=== PATIENT | female | born 1930 | race Caucasian/White ===

== ENCOUNTER 2016-05-25 08:57 | Observation (INO) | payer MEDICARE, OTHER ==
[~2016-05-25] VITALS: Ht 162.6 cm; Wt 80.5 kg
[~2016-05-25 08:57] MED LIST: ALEVE220 MG; ASCORBIC ACID500 MG PO; BONIVA150 MG; DETROL LA4 MG; MULTI-DAY VITAM1 TAB; NEXIUM40 MG PO; NIACIN250 M1; TENORMIN50 MG PO; VITAMIN B-121000 MC3 PO; VITAMIN E400 UNI2
[2016-05-25 09:54] LABS: BASOPHILS 0.3 % (0.0-2.0); EOSINOPHILS 1.7 % (0-7); HEMATOCRIT 37.8 % (36.0-48.0); HEMOGLOBIN 12.3 g/dL (12-16); IMMATURE GRANULOCYTES 0.2 % (0-5); LYMPHOCYTES 21.1 % (15-50); MCHC 32.5 g/dL (31.0-37.0); MCV 85.9 fL (80.0-100.0); MEAN PLATELET VOLUME 8.9 fL (7.4-10.4); MONOCYTES 13.4 % (2-11); NEUTROPHILS 63.3 % (40-80); PLATELET COUNT 200 10x3/uL (130-400); RDW 15.2 % (11.5-14.5); WBC 6.6 10x3/uL (4.8-10.8)
[2016-05-25 10:12] LABS: ALBUMIN 3.3 g/dL (3.4-5.0); ALKALINE PHOSPHATASE 54 U/L (46-116); ALT (SGPT) 19 U/L (10-68); CALC OSMOLALITY 277 mosm/kg (275-300); CALCIUM 9.1 mg/dL (8.5-10.1); CARBON DIOXIDE 26.1 mmol/L (21.0-32.0); CHLORIDE - SERUM 102 mmol/L (98-107); CREATININE - SERUM 0.9 mg/dL (0.6-1.3); GLUCOSE 111 mg/dL (74-106); POTASSIUM - SERUM 4.5 mmol/L (3.5-5.1); PROTEIN - SERUM 6.8 g/dL (6.4-8.2); SODIUM 137 mmol/L (136-145); UREA NITROGEN 21 mg/dL (7-18); eGFR NON AFRICAN AMERICAN 63 mL/min (90-120)
[2016-05-25 10:16] LABS: CREATINE KINASE 57 UL (21-215); MAGNESIUM - SERUM 1.9 mg/dL (1.8-2.4); TROPONIN-I < 0.017 ng/mL (0.000-0.060)
--- NOTE | 2016-05-25 12:45 | NUR ---
PATIENT ADMITTED TO ROOM 2124 FROM ED. PATIENT BROUGHT TO UNIT VIA WHEELCHAIR ACCOMPAINED BY HOSPITAL STAFF AND FRIENDS FROM [facility]. PATIENT ALERT/ORIENTED. RESP EVEN AND UNLABORED. NO DISTRESS. ASSISTED PATIENT TO BED. AT BEDSIDE FOR EVALUATION AT THIS TIME.
[2016-05-25] MEDS ORDERED: ZETIA10 MG PO (13:23)
[2016-05-25 13:43] VITALS: BP 168/98; BMI 30.2
--- NOTE | 2016-05-25 13:55 | NUR ---
SCDS PROVIDED TO PATIENT. PATIENT SITTING UP ON BEDSIDE CONSUMING MEAL AT THIS TIME WITH FEMALE FRIEND AT BEDSIDE. PATIENT DENIES ANY NEEDS AT THIS TIME. NON SKID SOCKS PATENT. CALL LIGHT WITHIN REACH. NO DISTRESS.
[2016-05-25 14:00] LABS: APPEARANCE HAZY (CLEAR); BILIRUBIN NEGATIVE (NEGATIVE); COLOR YELLOW (YELLOW); GLUCOSE NEGATIVE (NEGATIVE); KETONE NEGATIVE (NEGATIVE); LEUKOCYTE ESTERASE 2+ (NEGATIVE); NITRITE POSITIVE (NEGATIVE); PROTEIN NEGATIVE (NEGATIVE); UROBILINOGEN NORMAL (NORMAL)
[2016-05-25 14:01] LABS: BACTERIA MANY /hpf (NONE SEEN); EPITHELIAL CELLS 0-5 /hpf (0-5); RED CELLS - URINE NONE SEEN /hpf (0-5); WHITE CELLS - URINE 0-5 /hpf (0-5)
--- NOTE | 2016-05-25 14:17 | NUR ---
CALLED AND SPOKE TO AME IN LAB AND REQUESTED CULTURE BE PERFORMED ON UA THAT JUST RESULTED WITH MANY BACTERIA AND POSITIVE FOR NITRATES. ORDER PLACED IN COMPUTER AND AME STATED SHE WOULD TAKE CARE OF IT.
--- NOTE | 2016-05-25 14:18 | NUR ---
ENVELOPE PROVIDED TO PATIENT TO PLACE JEWLERY IN WHILE HAVING MRI.
--- NOTE | 2016-05-25 14:23 | NUR ---
PATIENT LEFT UNIT VIA WHEELCHAIR AT THIS TIME FOR MRI. NO DISTRESS UPON LEAVING UNIT.
--- NOTE | 2016-05-25 15:45 | NUR ---
PATIENT RETURNED TO UNIT VIA WHEELCHAIR. NO DISTRESS. CALL LIGHT WITHIN REACH. TELEMETRY AND SCD REAPPLIED.
[2016-05-25 17:01] VITALS: BP 164/81
--- NOTE | 2016-05-25 18:01 | NUR ---
RESTING IN BED AT THIS TIME. CALL LIGHT WITHIN REACH. NO DISTRESS. DENIES NEEDS.
--- NOTE | 2016-05-25 19:41 | NUR ---
RESUMED CARE OF PT, LYING IN BED RESPIRATIONS EVEN AND UNLABORED ON ROOM AIR. 72 SR ON TELEMETRY. LEFT AC SALINE LOCKED. CALL LIGHT IN REACH. SEE NURSE ASSESSMENT. WILL CONTINUE TO MONITOR.
[2016-05-25 21:30] VITALS: BP 166/83
--- NOTE | 2016-05-25 23:48 | NUR ---
LOCKSTITCH WAISTLINE JOINER AT BEDSIDE TO OBTAIN VITALS, CALL LIGHT IN REACH. WILL CONTINUE TO MONITOR.
[2016-05-26 00:45] VITALS: BP 196/104
[2016-05-26 04:30] VITALS: BP 185/88
[2016-05-26 05:53] LABS: CHOL - HDL RATIO 3.4 ratio (2.3-4.1); LDL-HDL RATIO 2.1 ratio (1.5-3.5); MAGNESIUM - SERUM 1.7 mg/dL (1.8-2.4); PHOSPHOROUS 4.1 mg/dL (2.5-4.9)
--- NOTE | 2016-05-26 06:36 | NUR ---
NO CHANGES FROM PREVIOUS ASSESSMENT, CALL LIGHT INR EACH. WILL CONTINUE TO MONITOR.
--- NOTE | 2016-05-26 07:15 | NUR ---
RESTING QUIETLY RESP UNLABORED NAD NOTED
--- NOTE | 2016-05-26 07:15 | NUR ---
RESTING QUIETLY EYES CLOSED RESP UNLABORED NAD NOTED
--- NOTE | 2016-05-26 07:30 | NUR ---
ASSESSMENT COMPLETED. TELEMERTY SHOWS SR. PT IS ON RA. LEFT AC SL. DENIES ANY NEEDS. REFUSED TO WEAR SCDS. SR UP WITH CALL LIGHT IN REACH. WILL MONITOR
[2016-05-26 08:00] VITALS: BP 132/73
[2016-05-26] MEDS ORDERED: ALEVE220 MG PO (10:31)
[2016-05-26] MEDS ORDERED: DETROL LA4 MG PO (10:31)
[2016-05-26] MEDS ORDERED: NIACIN250 M1 PO (10:32)
[2016-05-26] MEDS ORDERED: MULTI-DAY VITAM1 TAB PO (10:59)
[2016-05-26] MEDS ORDERED: VITAMIN E400 UNI2 PO (11:00)
[2016-05-26 12:00] VITALS: BP 163/76
[2016-05-26 13:16] VITALS: Ht 162.6 cm; Wt 80.5 kg
[2016-05-26 16:00] VITALS: BP 163/84
--- NOTE | 2016-05-26 19:30 | NUR ---
UP WALKING AROUND IN ROOM DENIES NEEDS AT THIS TIME. UP AD SULAIMAN W/O DIFF.ON ROOM AIR, TELEMETRY IN PLACE SHOWING HR 86 SR. LEFT ARM SL INTACT WITH NO R/S NOTED AT AC SITE. CONTINUE TO MONITOR. C/L IN REACH. DAUGHTER VISITING AT BEDSIDE.
[2016-05-26 20:03] VITALS: BP 149/92
[2016-05-27 01:37] VITALS: BP 160/86
[2016-05-27 04:19] VITALS: BP 173/90
--- NOTE | 2016-05-27 06:08 | HP ---
PATIENT: YOSELIN BETANCUR MEDICAL RECORD: [id number] ACCOUNT: [id number] LOCATION:[address] : 30 ADMISSION DATE: 05/25/16 HISTORY AND PHYSICAL EXAMINATION CHIEF COMPLAINT: Loss of consciousness. HISTORY OF PRESENT ILLNESS: The patient is an 85-year-old female with history of essential hypertension who was sitting in the orthodox this morning in a pew, she told a friend sitting next to her that she did not feel well and then proceeded to put head back and began to snore. Her eyes were closed. There was no seizure activity noted. Her friends were both nurses and they laid her down on the ground, and she immediately began to arouse and be awake and alert and asked them not to call EMS. She was diaphoretic. She denied chest pain, headache or any other symptoms. She said that she did not eat breakfast this morning and thought that might have played a role. She has no history of diabetes or hypoglycemia. She was brought by EMS, was hypertensive on presentation in the Emergency Room with a blood pressure 146/105 with a stable heart rate of 67. She now feels well and would like to go home. She denies feeling ill recently. No previous history of syncope or cardiac issues. PAST MEDICAL HISTORY: Essential hypertension, degenerative joint disease, GERD, hyperlipidemia, postmenopausal. PAST SURGICAL HISTORY: Laparoscopic cholecystectomy, elective left total knee replacement for arthritis, appendectomy, cataract surgery OU, bilateral hysterectomy at age 29, had a melanoma removed from her right cheek 8 years ago. SOCIAL HISTORY: She is a non-smoker, drinks rare glass of wine. 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 FAMILY HISTORY: Father of AL at 42, he was a smoker. Mother of osteosarcoma. HOME MEDICATIONS: Nexium 40 mg daily, Detrol-LA 1 daily, atenolol 50 mg daily, Zetia 10 mg daily, vitamin E 400 international units daily, niacin 500 mg p.o. daily, B12 of 1000 mcg p.o. daily, calcium carbonate with vitamin D 600 mg p.o. daily. ALLERGIES: None mentioned REVIEW OF SYSTEMS: GENERAL: She has felt well up until this episode. Denies any recent fever, weight loss or weight gain. HEENT: No recent visual change, sinus congestion, sore throat or hearing difficulty. RESPIRATORY: No SOB, cough or sputum production. CARDIAC: No exertional chest pain, claudication, edema or palpitations. GASTROINTESTINAL: No nausea, vomiting, change in stools or blood per rectum. GENITOURINARY: She has mild incontinence, improved with medication. No dysuria. GYNECOLOGIC: 4, 4-0-0-4; post-hysterectomy at age 29. No vaginal bleeding currently. ENDOCRINE: Denies polyuria, polydipsia, heat or cold intolerance. NEUROLOGIC: History of prior head injury, stroke, seizure activity, memory loss HISTORY AND PHYSICAL [id number] YOSELIN BETANCUR or motor deficits. INTEGUMENT: No rash or itching. PSYCHIATRIC: Denies depress mood. PHYSICAL EXAMINATION: VITAL SIGNS: Temperature 98 degrees Fahrenheit, pulse 67 and regular, respirations are 16, blood pressure is 164/105 initially, now is 130/90. O2 sat was 93% on room air. Weight 176 pounds or 79.8 kilos with a height of 5 feet 4 inches, BMI of 30.2. HEENT: Unremarkable except for lens implants OU. NECK: No bruits appreciated. No masses. CHEST: Clear without wheeze or rales. HEART: Regular rate without MGR. PMI appropriate. BREASTS: Not examined. ABDOMEN: Soft, mildly overweight. Healed laparoscopic cholecystectomy scars are noted. PELVIC: Deferred. EXTREMITIES: No CC&E. Does show healed left total knee replacement scar. NEUROLOGICAL: The patient is oriented to person, place, and time. Good recall. Cranial nerves II through XII were intact. Her gait is normal in tandem walk without difficulty. Recruiting Coordinator is 2+ on the right, 1+ on the left and she is right handed. No tremors noted. Reflexes are symmetrical throughout except in her left knee due to a knee replacement. LABORATORY DATA: White count of 6600 with normal differential. H&H is 12.3 and 37.8 respectively, platelet count 200,000. BMP is normal except for BUN of 21, glucose is 111. Cardiac enzymes were negative. Chest x-ray is unremarkable. CT of the brain shows the ventricle somewhat prominent, mild hypodensity in the periventricular white matter consistent with probable left frontal lobe infarct and chronic small vessel changes. EKG shows sinus rhythm with rate of 68, no old EKG to compare. ASSESSMENT: 1. Syncopal episode, etiology unknown. 2. Essential hypertension. 3. Gastroesophageal reflux disease. 4. History of melanoma. 5. Postmenopausal. 6. Early family history of heart disease. 7. Possible left frontal lobe infarct. PLAN: We will place on hospital monitor to rule out arrhythmia. We will schedule carotid Doppler, echocardiogram and MRI of the brain. Seizure precautions. Further workup to follow. TRANSINT:[id number] Voice Confirmation ID: [id number] DOCUMENT ID: [id number] HISTORY AND PHYSICAL [id number] YOSELIN BETANCUR TIMOTHY MD at 0608 CC: [id number] DICTATION DATE: 05/25/16 1314 ADULT CARE MANAGER: 05/25/16 1430 ADM IN [place] [id number] [place] [id number]
--- NOTE | 2016-05-27 08:00 | NUR ---
ASSESSMENT COMPLETED. TELEMERTY SHOWS SR WITH A HEART RATE OF 99.LEFT AC SL. DENIES ANY NEEDS, CALL LIGHT IN REACH WITH SR UP. WILL MONITOR
[2016-05-27 08:06] VITALS: BP 93/57
--- NOTE | 2016-05-27 11:54 | NUR ---
LYING QUIETLY. DENIES ANY NEEDS. CALL LIGHT IN REACH WITH SR UP. TELEMERTY SHOWS SR. WILL MONITOR
[2016-05-27 12:01] VITALS: BP 122/84
--- NOTE | 2016-05-27 14:03 | NUR ---
PT TO BE DISCHARGED. IV DCD WITH TIP INTACT. INSTRUCTIONS GIVEN TO PT. AWAITING TRANSPORTATION.
--- NOTE | 2016-05-27 15:35 | NUR ---
TO PRIVATE CAR PER WHEELCHAIR
--- NOTE | 2016-05-27 15:36 | NUR ---
TO PRIVATE CAR PER WHEELCHAIR
--- NOTE | 2016-05-29 13:59 | EC ---
PATIENT:YOSELIN BETANCUR DATE OF SERVICE: 05/25/16 SEX: F MEDICAL RECORD: [id number] DATE OF : 30 LOCATION:[address] AGE OF PATIENT: 85 ADMISSION DATE: 05/25/16 REFERRING PHYSICIAN: INTERPRETING PHYSICIAN: ONEIL TRINH MD ECHOCARDIOGRAM REPORT ECHO CHARGES 4 ECHO COMPLETE CLINICAL DIAGNOSIS: SYNCOPE HX HTN ECHOCARDIOGRAPHIC MEASUREMENTS (adult normal given) AC root (d.<3.7cm) 3.1 LV Septum d (<1.2 cm> 1.3 Valve Excursion 1.8 LV Septum (systole) 1.4 Left Atria (s.<4.0cm> 3.8 LVPW d(<1.2cm) 1.2 RV (d.<2.3cm) 3.3 LVPW (sytole) 1.5 LV diastole(<5.6CM) 4.4 MV E-F(>70mm/sec) LV systole 3.1 LVOT Diameter 1.7 MV exc.(>10mm) Est.ejection fraction (50-75%) Pericardial Effusion N DOPPLER: LVIT A 107 E 73.0 LA RVSP LVOT 88 AOP1/2T Asc. Ao 122 RVOT 74 RA PA 112 AV Gradient Peak 6.0 AV Mean 3.08 AV Area 1.7 MV Gradient Peak 5.60 MV Mean 2.44 MV Area COMMENTS: Wet End Tester: Neo RIVERA Wage Conciliator:Rachel Sykes TAPE# PACS DATE OF SERVICE: 05/25/2016 Echocardiogram FINDINGS: 1. Left ventricle chamber size is within normal limits. Left ventricular systolic function is normal. Overall ejection fraction estimated at 55%. 2. Left atrium is within normal limits at 3.9 cm. Right atrium and right ventricular chamber sizes are as well within normal limits. 3. Valvular structures have normal structure and motion. ECHOCARDIOGRAM REPORT [id number] YOSELIN BETANCUR 4. Doppler interrogation only reveals mild mitral regurgitation. No other valvular insufficiency or stenosis. 5. No evidence of pericardial effusion or left ventricular thrombus. TRANSINT:[id number] Voice Confirmation ID: [id number] DOCUMENT ID: [id number] ONEIL TRINH MD at 1359 CC: [id number] DICTATION DATE: 05/28/16923 GLOBE CLEANER: 05/28/16 1134 DIS IN 05/27/16 [facility] [address] [place], [facility]
== END 2016-05-27 15:38 | disposition home or self-care (01) ==
LOC: D.ER 08:57 → OBSVTIME 11:29 → D.M2 11:29
PROVIDERS: Emergency Medicine; Family Medicine; ADMIT Family Medicine
DX: R55 Syncope and collapse (principal); I10 Essential (primary) hypertension; R61 Generalized hyperhidrosis; M19.90 Unspecified osteoarthritis, unspecified site; K21.9 Gastro-esophageal reflux disease without esophagitis; E78.5 Hyperlipidemia, unspecified; Z78.0 Asymptomatic menopausal state

== ENCOUNTER 2017-05-03 08:55 | Emergency (ER) | payer MEDICARE, OTHER ==
[2016-05-26 13:16] VITALS: BMI 30.2
[~2017-05-03 08:55] MED LIST changes: +ALEVE220 MG PO; +DETROL LA4 MG PO; +MULTI-DAY VITAM1 TAB PO; +NIACIN250 M1 PO; +VITAMIN E400 UNI2 PO; +ZETIA10 MG PO
[2017-05-03 09:25] LABS: BASOPHILS 0.3 % (0-2); EOSINOPHILS 2.6 % (0-7); HEMOGLOBIN 11.8 g/dL (12-16); IMMATURE GRANULOCYTES 0.2 % (0-5); LYMPHOCYTES 23.4 % (15-50); MCH 29.1 pg (26.0-34.0); MCHC 32.8 g/dL (31.0-37.0); MCV 88.9 fL (80.0-100.0); MEAN PLATELET VOLUME 8.8 fL (7.4-10.4); MONOCYTES 12.8 % (2-11); NEUTROPHILS 60.7 % (40-80); PLATELET COUNT 185 10x3/uL (130-400); RBC 4.05 10x6/uL (4.00-5.40); RDW 14.5 % (11.5-14.5); WBC 6.2 10x3/uL (4.8-10.8)
[2017-05-03 09:37] LABS: BILIRUBIN - TOTAL 0.34 mg/dL (0.2-1.3); PROTEIN - SERUM 6.4 g/dL (6.4-8.2)
[2017-05-03 10:04] LABS: CREATINE KINASE 54 UL (21-215); MAGNESIUM - SERUM 2.3 mg/dL (1.8-2.4); PRO BNP 80 pg/mL (0-450)
[2017-05-03 10:12] LABS: TROPONIN-I < 0.017 ng/mL (0.000-0.060)
== END 2017-05-03 11:10 | disposition home or self-care (01) ==
LOC: D.ER 08:55
PROVIDERS: Emergency Medicine
DX: R55 Syncope and collapse (principal); I10 Essential (primary) hypertension